=== PATIENT | male | born 1985 | race Caucasian/White ===

== ENCOUNTER 2019-02-02 00:25 | Inpatient (IN) | payer MEDICAID ==
[~2019-02-02] VITALS: Ht 165.1 cm; Wt 87.0 kg
[~2019-02-02 00:25] MED LIST: ACET325T26 PO; AMOX1TAB12 PO; COLC0.6C3 PO; DEXA4TAB66 PO; EPIN0.3P3 SUBD; FAMO20TA7 PO; LEVE500T53 PO
[2019-02-02] MEDS ORDERED: ALBUTEROL SULFATE 2.5 MG/3 ML ONE (00:42)
[2019-02-02] MEDS ORDERED: ALBUTEROL SULFATE 2.5 MG/3 ML NPPB ONE (01:00)
[2019-02-02] MEDS ORDERED: EPINEPHRINE 1 MG/ML, 1ML SQ ONE (01:00)
[2019-02-02] MEDS ORDERED: SODIUM CHLORIDE 0.9% 1,000ML IVBOLUS ONE (01:00)
[2019-02-02] MEDS ORDERED: EPINEPHRINE 1 MG/ML, 1ML ONE (01:08)
--- NOTE | 2019-02-02 01:36 | NUR ---
INTERNAL MED MD AT BEDSIDE SPEAKING TO PATIENT.
[2019-02-02] MEDS ORDERED: DIPHENHYDRAMINE 25 MG CAPSULE PO SCH (02:00)
[2019-02-02] MEDS ORDERED: ENOXAPARIN 40 MG/0.4 ML SQ SCH (02:00)
[2019-02-02 02:35] VITALS: BP 105/71
[2019-02-02] MEDS: SODIUM CHLORIDE 0.9% 1,000 ML IV SCH ×2 (03:02→14:32)
[2019-02-02] MEDS: DEXAMETHASONE 4 MG/ML, 1ML IV SCH ×4 (03:03→20:43)
[2019-02-02 03:51] LABS: MEAN CORPUSCULAR HEMOGLOBIN 30.2 pg (27.5-34.5); MEAN CORPUSCULAR HGB CONC 33.4 g/dL (33.2-36.2); MEAN CORPUSCULAR VOLUME 90.3 fL (81-97); MEAN PLATELET VOLUME 9.5 fL (7.4-10.4); PLATELET COUNT 163 x10^3/uL (130-400); RED BLOOD COUNT 4.63 x10^6/uL (4.38-5.82); RED CELL DISTRIBUTION WIDTH 15.6 % (9.4-14.8)
[2019-02-02 04:00] LABS: ALANINE AMINOTRANSFERASE 31 U/L (12-78); ALBUMIN 3.8 g/dL (3.4-5.0); ANION GAP 14 mmol/L (5-15); CALCIUM 8.3 mg/dL (8.5-10.1); CHLORIDE 112 mmol/L (98-107)
[2019-02-02] MEDS ORDERED: ALBUTEROL SULFATE 2.5 MG/3 ML NPPB PRN (04:00)
[2019-02-02 04:03] LABS: ALKALINE PHOSPHATASE 99 U/L (45-117); BILIRUBIN,TOTAL 0.3 mg/dL (0.2-1.0); TOTAL PROTEIN 6.6 g/dL (6.4-8.2)
[2019-02-02 04:13] LABS: BASOPHILS # (AUTO) 0.01 x10^3/uL (0-0.1); BASOPHILS % (AUTO) 0 % (0-1); EOSINOPHILS # (AUTO) 0.04 x10^3/uL (0-0.4); EOSINOPHILS % (AUTO) 1 % (1-7); LYMPHOCYTES # (AUTO) 0.34 x10^3/uL (1-3.4); LYMPHOCYTES % (AUTO) 4 % (22-44); MD SCAN; MONOCYTES # (AUTO) 0.04 x10^3/uL (0.2-0.8); MONOCYTES % (AUTO) 1 % (2-9); NEUTROPHILS # (AUTO) 7.94 x10^3/uL (1.8-6.8); NEUTROPHILS % (AUTO) 95 % (42-75)
[2019-02-02 07:49] VITALS: BP 99/62
[2019-02-02] MEDS: FAMOTIDINE 20 MG/2 ML IVPush SCH ×2 (09:30→20:43)
[2019-02-02] MEDS: LEVETIRACETAM 500 MG TABLET PO SCH ×2 (09:31→20:43)
[2019-02-02] MEDS: DIPHENHYDRAMINE 25 MG CAPSULE PO SCH ×2 (09:31→14:32)
[2019-02-02 12:21] VITALS: BP 105/70
[2019-02-02 18:54] VITALS: BP 112/70
[2019-02-03 00:47] VITALS: BP 109/65
[2019-02-03] MEDS ORDERED: TAMSULOSIN 0.4 MG CAP.ER.24H PO ONE (01:00)
[2019-02-03] MEDS: DEXAMETHASONE 4 MG/ML, 1ML IV SCH ×2 (01:03→09:22)
[2019-02-03 03:37] LABS: MICROSCOPIC NOT IND
[2019-02-03] MEDS: SODIUM CHLORIDE 0.9% 1,000 ML IV SCH ×2 (04:44→20:35)
[2019-02-03 04:53] LABS: BASOPHILS % (AUTO) 0 % (0-1); EOSINOPHILS # (AUTO) 0.12 x10^3/uL (0-0.4); EOSINOPHILS % (AUTO) 1 % (1-7); LYMPHOCYTES # (AUTO) 0.57 x10^3/uL (1-3.4); LYMPHOCYTES % (AUTO) 6 % (22-44); MD NO; MEAN CORPUSCULAR HEMOGLOBIN 30.3 pg (27.5-34.5); MEAN CORPUSCULAR HGB CONC 33.2 g/dL (33.2-36.2); MEAN CORPUSCULAR VOLUME 91.3 fL (81-97); MEAN PLATELET VOLUME 9.8 fL (7.4-10.4); MONOCYTES # (AUTO) 0.31 x10^3/uL (0.2-0.8); MONOCYTES % (AUTO) 3 % (2-9); NEUTROPHILS # (AUTO) 8.09 x10^3/uL (1.8-6.8); NEUTROPHILS % (AUTO) 89 % (42-75); PLATELET COUNT 163 x10^3/uL (130-400); RED BLOOD COUNT 4.52 x10^6/uL (4.38-5.82)
[2019-02-03 04:57] LABS: ALANINE AMINOTRANSFERASE 30 U/L (12-78); ALBUMIN 3.7 g/dL (3.4-5.0); ANION GAP 7 mmol/L (5-15); CALCIUM 9.2 mg/dL (8.5-10.1); CHLORIDE 108 mmol/L (98-107); CREATININE 1.02 mg/dL (0.7-1.3)
[2019-02-03 05:00] LABS: ALKALINE PHOSPHATASE 98 U/L (45-117); BILIRUBIN,TOTAL 0.4 mg/dL (0.2-1.0); TOTAL PROTEIN 6.8 g/dL (6.4-8.2)
[2019-02-03 07:34] VITALS: BP 109/61
[2019-02-03] MEDS: ALBUTEROL SULFATE 2.5 MG/3 ML NPPB SCH ×2 (07:40→11:12)
[2019-02-03] MEDS ORDERED: RACEPINEPHRINE INH 2.25%, 0.5ML NPPB PRN (08:00)
[2019-02-03] MEDS: FAMOTIDINE 20 MG/2 ML IVPush SCH (09:22)
[2019-02-03] MEDS: LEVETIRACETAM 500 MG TABLET PO SCH ×2 (09:23→20:34)
[2019-02-03 13:09] VITALS: BP 109/69
[2019-02-03 13:24] LABS: HEMOGLOBIN A1C 5.4 % (4.2-6.3)
[2019-02-03 20:28] VITALS: BP 118/77
[2019-02-03] MEDS: FAMOTIDINE 20 MG TABLET PO SCH (20:34)
[2019-02-04] MEDS ORDERED: TEMAZEPAM 15 MG CAPSULE PO ONE (00:30)
[2019-02-04 01:07] VITALS: BP 118/80
[2019-02-04 07:05] VITALS: BP 108/76
[2019-02-04] MEDS ORDERED: PRED20TA PO (07:50)
[2019-02-04] MEDS: LEVETIRACETAM 500 MG TABLET PO SCH (09:02)
[2019-02-04] MEDS: FAMOTIDINE 20 MG TABLET PO SCH (09:02)
== END 2019-02-04 11:00 | disposition home or self-care (01) | DRG 816 ==
LOC: ED 02:11 → EDIP 02:17 → 4WST 02:29 → DCLOUNGE 02-04 10:46 → UNDODISIN 02-04 11:00
PROVIDERS: ADMIT Family Medicine; ATTEND Family Medicine
DX: T63.441A Toxic effect of venom of bees, accidental (unintentional), initial encounter (principal); N17.0 Acute kidney failure with tubular necrosis; T78.2XXA Anaphylactic shock, unspecified, initial encounter; R13.10 Dysphagia, unspecified; G40.909 Epilepsy, unspecified, not intractable, without status epilepticus; X58.XXXA Exposure to other specified factors, initial encounter; Z87.11 Personal history of peptic ulcer disease; Z87.892 Personal history of anaphylaxis
CPT/HCPCS: 36415; 71045; 74018; 80053; 81003; 83036; 85025; 87086; 93005; 94640; 96360; 96372; G0378; J0171; J1100; J7613; J3490; J7030; J7512; Q0163